=== PATIENT | female | born 1940 | race Asian ===

== ENCOUNTER 2018-04-30 21:55 | Inpatient (IN) | payer OTHER ==
[~2018-04-30] VITALS: Ht 157.5 cm; Wt 57.7 kg
[~2018-04-30 21:55] MED LIST: AMANTADINE100 M1 PO; AMLODIPINE BESYLATE PO; CARV3.12 PO; DONE5TAB PO; HALO5INJ3 IM; HYDROCHLOROT12.5 M1 PO; LATANOPROST0.005 % OPTH; LIPITOR40 MG PO; LORA0.5T17 PO; MED PASS PO; MIRALAX3350 N1 PO; OLAN2.5T2 PO; OLANZAPINE2.5 MG PO; SYSTANE ULTRA OP; TYLENOL325 MG PO
[2018-04-30 22:04] VITALS: BP 86/55; TEMP 99.3
[2018-04-30 22:12] VITALS: BP 97/49
[2018-04-30 23:00] VITALS: BP 116/37
[2018-05-01] VITALS (35 sets, daily range): BP systolic 72–107; BP diastolic 38–66; TEMP 97–99.3; BMI 23.4
[2018-05-01 00:45] LABS: PARTIAL THROMBOPLASTIN TIME 33.5 SECONDS (24.5-33.6)
[2018-05-01 06:33] LABS: PLATELET COUNT 179 K/uL (152-353)
[2018-05-01 06:49] LABS: POTASSIUM 3.6 mmol/L (3.6-5.2)
[2018-05-02] VITALS (18 sets, daily range): BP systolic 92–145; BP diastolic 38–106; TEMP 97.6–98.7
[2018-05-02 11:50] LABS: PLATELET COUNT 205 K/uL (152-353)
[2018-05-02 12:23] LABS: POTASSIUM 3.2 mmol/L (3.6-5.2)
[2018-05-03] VITALS (25 sets, daily range): BP systolic 102–157; BP diastolic 48–83; TEMP 97.4–98.7; BMI 19.3
[2018-05-03 06:37] LABS: PLATELET COUNT 185 K/uL (152-353)
[2018-05-03 07:01] LABS: POTASSIUM 3.9 mmol/L (3.6-5.2)
[2018-05-04] VITALS (20 sets, daily range): BP systolic 129–163; BP diastolic 58–83; TEMP 97–98
[2018-05-04 06:33] LABS: PLATELET COUNT 209 K/uL (152-353)
[2018-05-04 06:41] LABS: POTASSIUM 3.7 mmol/L (3.6-5.2)
[2018-05-05] VITALS (24 sets, daily range): BP systolic 93–159; BP diastolic 56–73; TEMP 97.1–97.7
[2018-05-05 06:51] LABS: PLATELET COUNT 200 K/uL (152-353)
[2018-05-05 06:56] LABS: POTASSIUM 3.7 mmol/L (3.6-5.2)
[2018-05-06] VITALS (8 sets, daily range): BP systolic 121–156; BP diastolic 59–77; TEMP 97.4
== END 2018-05-06 08:53 | disposition other institution (70) | DRG 872 ==
LOC: ICU 21:55
PROVIDERS: Emergency Medicine; Family Medicine; ADMIT Allergy & Immunology
DX: A41.89 Other specified sepsis (principal); F02.81 Dementia in other diseases classified elsewhere, unspecified severity, with behavioral disturbance; F06.0 Psychotic disorder with hallucinations due to known physiological condition; I95.89 Other hypotension; E87.6 Hypokalemia; E83.42 Hypomagnesemia; G30.8 Other Alzheimer's disease; I10 Essential (primary) hypertension; G25.89 Other specified extrapyramidal and movement disorders; G25.2 Other specified forms of tremor
CPT/HCPCS: 36415; 36600; 80053; 81000; 82550; 82553; 82805; 83605; 83735; 84484; 85027; 85610; 85730; 86140; 87040; 87070; 93005; 94760; J1165; J1630; J1650; J2060; J2270; J2310; J2543; J3370; J3411; J3475; J3480; J3490; J7060

== ENCOUNTER 2021-12-25 20:16 | Emergency (ER) | payer OTHER ==
[~2021-12-25] VITALS: Ht 157.5 cm; Wt 54.4 kg
[2021-12-25 20:16] VITALS: BP 119/81; TEMP 98.9
[~2021-12-25 20:16] MED LIST changes: +AMLODIPINE 10MG PO; -AMLODIPINE BESYLATE PO; +MIRALAX17 GM/SCOO PO; -MIRALAX3350 N1 PO; +QUET100T2 PO; +QUET25TA2 PO
[2021-12-25 20:47] LABS: PLATELET COUNT 204 K/uL (152-353)
[2021-12-26] MEDS ORDERED: DOK100 MG PO (11:03)
[2021-12-26] MEDS ORDERED: DONEPEZIL HYDRO10 MG PO (11:04)
[2021-12-26] MEDS ORDERED: FURO20TA67 PO (11:06)
[2021-12-26] MEDS ORDERED: MIRTAZAPINE 15 MG PO (11:08)
[2021-12-26] MEDS ORDERED: COMBIGAN0.2 MG/0.5 OPTH (11:10)
[2021-12-26] MEDS ORDERED: QUET25TA2 PO (11:12)
[2021-12-26] MEDS ORDERED: QUETIAPINE50 MG PO (11:13)
[2021-12-26] MEDS ORDERED: ARTIFICIA2 OPTH (11:14)
[2021-12-26] MEDS ORDERED: TRAMADOL HYDROC50 MG PO (11:16)
[2021-12-26] MEDS ORDERED: FURO40TA93 PO (11:17)
== END 2021-12-25 21:40 | disposition other institution (70) ==
LOC: ED 20:16
PROVIDERS: Family Medicine
DX: F03.911 Unspecified dementia, unspecified severity, with agitation (principal); Z11.52 Encounter for screening for COVID-19; Z04.6 Encounter for general psychiatric examination, requested by authority
CPT/HCPCS: 36415; 80053; 81002; 85027; 87635; 93005; 99283; U0003